=== PATIENT | male | born 1960 | race Caucasian/White ===

== ENCOUNTER 2023-10-19 01:21 | Emergency (ER) | payer SELFPAY ==
[~2023-10-19] VITALS: Ht 180.3 cm; Wt 100.0 kg
[2023-10-19 01:26] VITALS: BP 184/100; PULSE 75; RESP 16; TEMP 98.2; O2SAT 99
== END 2023-10-19 03:19 | disposition left against medical advice (07) ==
LOC: ER 01:22
DX: R10.9 Unspecified abdominal pain (principal); R11.10 Vomiting, unspecified; Z53.21 Procedure and treatment not carried out due to patient leaving prior to being seen by health care provider